=== PATIENT | male | born 1975 | race Caucasian/White ===

== ENCOUNTER 2017-01-28 11:15 | Emergency (ER) | payer MEDICARE, MEDICAID ==
--- NOTE | 2017-01-28 11:51 | ER Document Report ---
ED Medical Screen (RME) - General Stated Complaint: LEFT EAR PAIN Notes: 41 yo male c/o left ear pain x 2 days. + sore throat. + URI s/s x 2 weeks. + fever TRAVEL OUTSIDE OF THE [place] IN LAST 30 DAYS: No - Related Data Allergies/Adverse Reactions: acetaminophen [From Percocet] Adverse Reaction (Verified 01/28/17 11:49) Nausea celecoxib [From Celebrex] Adverse Reaction (Verified 01/28/17 11:49) Diarrhea oxycodone HCl [From Percocet] Adverse Reaction (Verified 01/28/17 11:49) Nausea Past Medical History - Past Medical History Cardiac Medical History: Reports: Hx Hypertension Endocrine Medical History: Reports: Hx Diabetes Mellitus Type 2 GI Medical History: Reports: Hx Gastroesophageal Reflux Disease Psychiatric Medical History: Reports: Hx Depression Past Surgical History: Reports: Hx Adenoidectomy, Hx Orthopedic Surgery - left knee x2, Hx Tonsillectomy - Immunizations Hx Diphtheria, Pertussis, Tetanus Vaccination: Yes
--- NOTE | 2017-01-28 13:03 | ER Document Report ---
ED ENT - General Chief Complaint: Ear Pain Stated Complaint: LEFT EAR PAIN Time seen by provider: 13:01 Mode of Arrival: Ambulatory Information source: Patient Notes: 41-year-old male presents to ED for bad ear infection to the left ear with a sore throat cough and fever. Patient states he has had the ear pain since last night. TRAVEL OUTSIDE OF THE [place] IN LAST 30 DAYS: No - HPI Patient complains to provider of: Ear problem, Nose problem, Throat problem, Other - Cough Onset: Yesterday Onset/Duration: Gradual Quality of pain: Sharp Severity: Moderate Pain Level: 4 Context: Recent Illness Location of pain: Ears - Left, Nose, Sinus, Throat Associated symptoms: Ear pain, Runny nose, Sinus drainage, Sore throat Similar symptoms previously: Yes Recently seen / treated by doctor: No - Related Data Allergies/Adverse Reactions: acetaminophen [From Percocet] Adverse Reaction (Verified 01/28/17 11:49) Nausea celecoxib [From Celebrex] Adverse Reaction (Verified 01/28/17 11:49) Diarrhea oxycodone HCl [From Percocet] Adverse Reaction (Verified 01/28/17 11:49) Nausea Past Medical History - General Information source: Patient - Social History Smoking Status: Current Every Day Smoker Cigarette use (# per day): Yes - pack per day Chew tobacco use (# tins/day): Yes Smoking Education Provided: Yes - less than 2 minutes Frequency of alcohol use: None Drug Abuse: None Occupation: disabled Lives with: Parents Family History: Arthritis, CAD, CVA, DM, Hyperlipidemia, Hypertension, Thyroid Disfunction Patient has suicidal ideation: No Patient has homicidal ideation: No - Past Medical History Cardiac Medical History: Reports: Hx Hypercholesterolemia, Hx Hypertension Pulmonary Medical History: Reports: None EENT Medical History: Reports: None Neurological Medical History: Reports: None Endocrine Medical History: Reports: Hx Diabetes Mellitus Type 2 Renal/ Medical History: Reports: None Malignancy Medical History: Reports None GI Medical History: Reports: Hx Gastroesophageal Reflux Disease Musculoskeltal Medical History: Reports Hx Arthritis, Reports Hx Musculoskeletal Deformity, Reports Hx Musculoskeletal Trauma Skin Medical History: Reports None Psychiatric Medical History: Reports: Hx Depression Traumatic Medical History: Reports: Hx Fractures - Ankle and fingers Infectious Medical History: Reports: None Past Surgical History: Reports: Hx Adenoidectomy, Hx Orthopedic Surgery - left knee x2, Hx Tonsillectomy - Immunizations Hx Diphtheria, Pertussis, Tetanus Vaccination: Yes Review of Systems - Review of Systems Constitutional: Recent illness EENT: Ear pain, Nose discharge, Sinus discharge, Throat pain Cardiovascular: No symptoms reported Respiratory: Cough Gastrointestinal: No symptoms reported Genitourinary: No symptoms reported Male Genitourinary: No symptoms reported Musculoskeletal: No symptoms reported Skin: No symptoms reported Hematologic/Lymphatic: No symptoms reported Neurological/Psychological: No symptoms reported Physical Exam - Vital signs Vitals: Temp Pulse Resp BP Pulse Ox 98.1 F 88 18 131/89 H 92 01/28/17 13:07 01/28/17 13:07 01/28/17 13:07 01/28/17 13:07 01/28/17 13:07 Interpretation: Normal - General General appearance: Appears well, Alert - HEENT Head: Normocephalic, Atraumatic Eyes: Normal Pupils: PERRL Ears: Normal External canal: Normal Tympanic membrane: Bulging, Hemotympanum, Injected, Loss of landmarks, Other - ( Sinus: Normal Nasal: Purulent discharge, Swelling Mouth/Lips: Normal Pharynx: Post nasal drainage Neck: Normal - Respiratory Respiratory status: No respiratory distress Chest status: Nontender Breath sounds: Nonproductive cough. No: Productive cough, Rales, Rhonchi, Stridor, Wheezing Chest palpation: Normal - Cardiovascular Rhythm: Regular Heart sounds: Normal auscultation Murmur: No - Abdominal Inspection: Normal Distension: No distension Bowel sounds: Normal Tenderness: Nontender Organomegaly: No organomegaly - Back Back: Normal, Nontender - Extremities General upper extremity: Normal inspection, Nontender, Normal color, Normal ROM , Normal temperature General lower extremity: Normal inspection, Nontender, Normal color, Normal ROM , Normal temperature, Normal weight bearing. No: Corby's sign - Neurological Neuro grossly intact: Yes Cognition: Normal Orientation: AAOx4 Fl[place] Coma Scale Eye Opening: Spontaneous [place] Coma Scale Verbal: Oriented [place] Coma Scale Motor: Obeys Commands Florent[place] Coma Scale Total: 15 Speech: Normal Motor strength normal: LUE, RUE, LLE, RLE Sensory: Normal - Psychological Associated symptoms: Normal affect, Normal mood - Skin Skin Temperature: Warm Skin Moisture: Dry Skin Color: Normal Course - Vital Signs Vital signs: Temp Pulse Resp BP Pulse Ox 98.1 F 88 18 131/89 H 92 01/28/17 13:07 01/28/17 13:07 01/28/17 13:07 01/28/17 13:07 01/28/17 13:07 Discharge - Discharge Clinical Impression: Otitis media, left Qualifiers: Otitis media type: unspecified Chronicity: unspecified Qualified Code(s): H66.92 - Otitis media, unspecified, left ear Upper respiratory infection Qualifiers: URI type: unspecified URI Qualified Code(s): J06.9 - Acute upper respiratory infection, unspecified Condition: Stable Disposition: HOME, SELF-CARE Instructions: Family Physicians / Practices Additional Instructions: OTITIS MEDIA: You have a middle ear infection (otitis media). This is usually a complication of a cold or sore throat. The middle ear cavity becomes filled with infection. Pressure and stretching of the ear drum cause pain. Antibiotics are required. A 10 day course is usually prescribed. A decongestant may be recommended if you have a "runny nose." You may need anesthetic drops or other pain medication. A follow-up exam may be recommended to make sure the infection has completely cleared. If the ear begins to drain, it means the ear drum has ruptured. This will usually heal spontaneously. However, it means you should keep the ear dry until re-examined by a doctor. Call the physician or return for examination at once if there is severe headache, stiff neck, confusion, increasing fever, or dizziness. You should improve significantly within two days. If you're not better, call the doctor. UPPER RESPIRATORY ILLNESS: You have a viral infection of the respiratory passages -- a "cold." This common infection causes nasal congestion, drainage, and often sore throat and cough. It is highly contagious. The disease usually lasts about 10 to 14 days. There is no "cure" for the viral infection -- it must run its course. If there is a complication, such as bacterial infection in the nose, sinuses, middle ear, or bronchial tubes, antibiotics may be required. The antibiotics won't affect the virus. Drink plenty of fluids. A humidifier may help. An expectorant medication or decongestant may make you more comfortable. Use acetaminophen or ibuprofen for fever or aches. See the doctor if fever persists over two days, if there is any significant worsening of your symptoms, or if you simply fail to improve as expected. SMOKING: If you smoke, you should stop smoking. The tar and chemicals in cigarette smoke are harmful. Smoking has been shown to cause: emphysema chronic bronchitis lung cancer mouth and throat cancer stomach and pancreas cancer premature aging defects In addition, smoking increases ear and lung infections in children of smokers. AMOXICILLIN: Amoxicillin is a member of the penicillin family. It covers the germs likely to cause ear, bronchial, and urinary infections better than plain penicillin. Amoxicillin can be taken without regard to meals. Nausea after taking the medication is rare, but can occur. Diarrhea can occur, particularly in small children. Vaginal yeast infections and oral thrush in infants are also common. Contact your physician if these problems occur. Allergy to penicillins is common. If you have had an allergic reaction to any drug of the penicillin family, you should never take any other penicillin. Notify your doctor at once if you develop hives, itching, swelling, faintness, or shortness of breath. Less serious side effects can include nausea or diarrhea. USE OF ACETAMINOPHEN (Tylenol): Acetaminophen may be taken for pain relief or fever control. It's much safer than aspirin, offering a wider range of "safe" dosages. It is safe during . Some brand names are Tylenol, Panadol, Datril, Anacin 3, Tempra, and Liquiprin. Acetaminophen can be repeated every four hours. The following are maximum recommended dosages: WEIGHT Dose Drops Elixir Chewable( 80mg) (LBS.) drprs=droppers tsp=teaspoon 6 40 mg 0.4 ml (1/2) 6-11 80 mg 0.8 ml (full) tsp 1 tab 12-16 120 mg 1 1/2 drprs 3/4 tsp 1 1/2 tabs 17-23 160 mg 2 drprs 1 tsp 2 tabs 24-30 240 mg 3 drprs 1 1/2 tsp 3 tabs 30-35 320 mg 2 tsp 4 tabs 36-41 360 mg 2 1/4 tsp 4 1/2 tabs 42-47 400 mg 2 1/2 tsp 5 tabs 48-53 480 mg 3 tsp 6 tabs 54-59 520 mg 3 1/4 tsp 6 1/2 tabs 60-64 560 mg 3 1/2 tsp 7 tabs 65-70 600 mg 3 3/4 tsp 7 1/2 tabs 71-76 640 mg 4 tsp 8 tabs 77-82 720 mg 4 1/2 tsp 9 tabs 83-88 800 mg 5 tsp 10 tabs >89 pounds or adults 650 mg to 900 mg Acetaminophen can be repeated every four hours. Maximum dose not to exceed 4000 mg a day. These maximum recommended dosages are slightly higher than the dosages written on the product container, but these dosages are very safe and below the toxic dosage for acetaminophen. FOLLOW-UP CARE: If you have been referred to a physician for follow-up care, call the physician s office for an appointment as you were instructed or within the next two days. If you experience worsening or a significant change in your symptoms, notify the physician immediately or return to the Emergency Department at any time for re-evaluation. Prescriptions: Amoxicillin Trihydrate [Amoxil 875 mg Tablet] 1 tab PO BID #20 tablet Forms: Elevated Blood Pressure, Smoking Cessation Education
[2017-01-28 13:09] VITALS: BP 131/89
[2017-01-28] MEDS ORDERED: AMOXICILLIN TRIHYDRATE 500 MG CAPSULE PO ONE (13:09)
[2017-01-28] MEDS ORDERED: IBUPROFEN 800 MG TABLET PO ONE (13:09)
== END 2017-01-28 13:07 | disposition home or self-care (01) ==
LOC: ER 11:15
DX: H66.92 Otitis media, unspecified, left ear (principal); J06.9 Acute upper respiratory infection, unspecified; H92.02 Otalgia, left ear; J02.9 Acute pharyngitis, unspecified; R05 Cough; R50.9 Fever, unspecified; F17.210 Nicotine dependence, cigarettes, uncomplicated
CPT/HCPCS: 99282; A9270 ×2

== ENCOUNTER 2017-11-02 00:23 | Emergency (ER) | payer MEDICARE, MEDICAID ==
[2017-11-02] MEDS ORDERED: KETOROLAC TROMETHAMINE 60 MG/2 ML SDV IM ONE (00:38)
--- NOTE | 2017-11-02 01:00 | ER Document Report ---
ED Extremity Problem, Lower - General Chief Complaint: Knee Pain Stated Complaint: RIGHT KNEE PAIN Time Seen by Provider: 11/02/17 00:37 Notes: 42 years old, obese male, stays when he was getting off the bed twisted his right right knee, since then unable to walk and bear weight. Therefore called the EMS and came to the ED. Denies any other constitutional symptoms TRAVEL OUTSIDE OF THE [place] IN LAST 30 DAYS: No - Related Data Allergies/Adverse Reactions: acetaminophen [From Percocet] Adverse Reaction (Verified 01/28/17 11:49) Nausea celecoxib [From Celebrex] Adverse Reaction (Verified 01/28/17 11:49) Diarrhea oxycodone HCl [From Percocet] Adverse Reaction (Verified 01/28/17 11:49) Nausea Past Medical History - Social History Smoking Status: Unknown if Ever Smoked Chew tobacco use (# tins/day): No Frequency of alcohol use: Rare Drug Abuse: None Family History: Arthritis, CAD, CVA, DM, Hyperlipidemia, Hypertension, Thyroid Disfunction Patient has suicidal ideation: No Patient has homicidal ideation: No - Past Medical History Cardiac Medical History: Reports: Hx Hypercholesterolemia, Hx Hypertension Endocrine Medical History: Reports: Hx Diabetes Mellitus Type 2 Renal/ Medical History: Denies: Hx Peritoneal Dialysis GI Medical History: Reports: Hx Gastroesophageal Reflux Disease Musculoskeltal Medical History: Reports Hx Arthritis, Reports Hx Musculoskeletal Deformity, Reports Hx Musculoskeletal Trauma Psychiatric Medical History: Reports: Hx Depression Traumatic Medical History: Reports: Hx Fractures - Ankle and fingers Past Surgical History: Reports: Hx Adenoidectomy, Hx Orthopedic Surgery - left knee x2, Hx Tonsillectomy - Immunizations Hx Diphtheria, Pertussis, Tetanus Vaccination: Yes Review of Systems - Review of Systems Notes: REVIEW OF SYSTEMS: CONSTITUTIONAL : Denies fever, chills, or sweats. Denies recent illness. EENT: Denies eye, ear, throat, or mouth pain or symptoms. Denies nasal or sinus congestion or discharge. Denies throat, tongue, or mouth swelling or difficulty swallowing. CARDIOVASCULAR: Denies chest pain. Denies palpitations or racing or irregular heart beat. Denies ankle edema. RESPIRATORY: Denies cough, cold, or chest congestion. Denies shortness of breath, difficulty breathing, or wheezing. GASTROINTESTINAL: Denies abdominal pain or distention. Denies nausea, vomiting , or diarrhea. Denies blood in vomitus, stools, or per rectum. Denies black, tarry stools. Denies constipation. GENITOURINARY: Denies difficulty urinating, painful urination, burning, frequency, blood in urine, or discharge. MUSCULOSKELETAL: As per history of complain SKIN: Denies rash, lesions or sores. HEMATOLOGIC : Denies easy bruising or bleeding. LYMPHATIC: Denies swollen, enlarged glands. NEUROLOGICAL: Denies confusion or altered mental status. Denies passing out or loss of consciousness. Denies dizziness or lightheadedness. Denies headache. Denies weakness or paralysis or loss of use of either side. Denies problems with gait or speech. Denies sensory loss, numbness, or tingling. Denies seizures. PSYCHIATRIC: Denies anxiety or stress. Denies depression, suicidal ideation, or homicidal ideation. ALL OTHER SYSTEMS REVIEWED AND NEGATIVE. Dictation was performed using [employer] voice recognition software PHYSICAL EXAMINATION: GENERAL: Morbidly obese, unhygienic, multiple rings throughout his face, multiple tattoo hope right knee there is no obvious swelling discoloration noted HEAD: Atraumatic, normocephalic. EYES: Pupils equal round and reactive to light, extraocular movements intact, sclera anicteric, conjunctiva are normal. ENT: Nares patent, oropharynx clear without exudates. Moist mucous membranes. NECK: Normal range of motion, supple without lymphadenopathy LUNGS: Breath sounds clear to auscultation bilaterally and equal. No wheezes rales or rhonchi. HEART: Regular rate and rhythm without murmurs ABDOMEN: Soft, nontender, nondistended abdomen. No guarding, no rebound. No masses appreciated. Musculoskeletal:, He could not flex and extend anticipation of pain. Neurovascular function distally within normal limitsis just having a lot of is NEUROLOGICAL: Cranial nerves grossly intact. Normal speech, normal gait. Normal sensory, motor exams PSYCH: Normal mood, normal affect. SKIN: Warm, Dry, normal turgor, no rashes or lesions noted. Course - Re-evaluation Re-evalutation: 11/02/17 01:26 Persistent pain - Diagnostic Test Radiology results interpreted by me: 11/02/17 01:25 Report by the radiologist reviewed no acute fractures but osteoarthritic changes Discharge - Discharge Clinical Impression: Sprain of right knee Qualifiers: Encounter type: initial encounter Involved ligament of knee: unspecified ligament Qualified Code(s): S83.91XA - Sprain of unspecified site of right knee , initial encounter Right knee injury Qualifiers: Encounter type: initial encounter Qualified Code(s): S89.91XA - Unspecified injury of right lower leg, initial encounter Condition: Fair Disposition: HOME, SELF-CARE Instructions: Suspected Internal Knee Injury ([facility]) Prescriptions: Diclofenac Sodium 75 mg PO TID PRN #30 tablet. PRN Reason: Referrals: VIMAL SALCEDO MD [NO LOCAL MD] - Follow up as needed
--- NOTE | 2017-11-02 01:20 | RADIOLOGY REPORT (SQ) ---
EXAM DESCRIPTION: KNEE RIGHT 4 VIEWS CLINICAL HISTORY: fall with pain COMPARISON: None. FINDINGS: 4 views of the knee. No acute fracture or dislocation. No radiopaque foreign bodies. 3 compartment joint space narrowing and marginal osteophytosis. IMPRESSION: 1. No acute fracture or dislocation. 2. 3 compartment osteoarthritic change.
[2017-11-02 02:08] VITALS: BP 153/94
== END 2017-11-02 02:09 | disposition home or self-care (01) ==
LOC: ER 00:23
DX: S83.91XA Sprain of unspecified site of right knee, initial encounter (principal); X50.0XXA Overexertion from strenuous movement or load, initial encounter; Y92.009 Unspecified place in unspecified non-institutional (private) residence as the place of occurrence of the external cause; E78.00 Pure hypercholesterolemia, unspecified; I10 Essential (primary) hypertension; E11.9 Type 2 diabetes mellitus without complications; Z88.6 Allergy status to analgesic agent
CPT/HCPCS: 99283; 96372; 73564; L1830; J1885

== ENCOUNTER 2017-12-05 11:57 | Emergency (ER) | payer MEDICARE, MEDICAID ==
--- NOTE | 2017-12-05 12:17 | ER Document Report ---
ED Medical Screen (RME) - General Chief Complaint: Leg Pain Stated Complaint: LEFT LEG PAIN Time Seen by Provider: 12/05/17 12:14 Mode of Arrival: Ambulatory Information source: Patient Notes: 42-year-old male presenting with complaints of left knee and calf pain. Patient states he has had previous meniscus repairs in this knee but this pain today feels different. Patient states the pain comes and goes and he feels a throbbing sensation in his calf. Patient states the pain is not reproducible with palpation. Patient denies any chest pain or shortness of breath. Patient is on a baby aspirin a day. Patient has no history of PE/DVT. TRAVEL OUTSIDE OF THE [place] IN LAST 30 DAYS: No - Related Data Allergies/Adverse Reactions: celecoxib [From Celebrex] Adverse Reaction (Verified 12/05/17 12:20) Diarrhea Past Medical History - General Information source: [facility] Records - Past Medical History Cardiac Medical History: Reports: Hx Hypercholesterolemia, Hx Hypertension Denies: Hx DVT Endocrine Medical History: Reports: Hx Diabetes Mellitus Type 2 Renal/ Medical History: Denies: Hx Peritoneal Dialysis GI Medical History: Reports: Hx Gastroesophageal Reflux Disease Musculoskeltal Medical History: Reports Hx Arthritis, Reports Hx Musculoskeletal Deformity, Reports Hx Musculoskeletal Trauma Psychiatric Medical History: Reports: Hx Depression Traumatic Medical History: Reports: Hx Fractures - Ankle and fingers Past Surgical History: Reports: Hx Adenoidectomy, Hx Orthopedic Surgery - left knee x2, Hx Tonsillectomy - Immunizations Hx Diphtheria, Pertussis, Tetanus Vaccination: Yes Review of Systems - Review of Systems Musculoskeletal: See HPI, Joint pain - left knee, left calf pain Physical Exam - Vital signs Vitals: Temp Pulse Resp BP Pulse Ox 97.5 F 16 L 16 147/83 H 93 12/05/17 12:12/05/17 12:12/05/17 12:01 12/05/17 12:12/05/17 12:01 - General General appearance: Appears well, Alert In distress: None - HEENT Head: Normocephalic, Atraumatic Eyes: Normal - Respiratory Respiratory status: No respiratory distress Chest status: Nontender Breath sounds: Normal - Extremities General lower extremity: Tender - left knee and calf pain Course - Vital Signs Vital signs: Temp Pulse Resp BP Pulse Ox 97.5 F 16 L 16 147/83 H 93 12/05/17 12:01 12/05/17 12:01 12/05/17 12:01 12/05/17 12:01 12/05/17 12:01 [place]la[place] Documentation - Scribe Written by Stacie:: Stacie Siddiqui, 12/05/2017 1304 acting as scribe for :: [email or web address]
--- NOTE | 2017-12-05 13:16 | RADIOLOGY REPORT (SQ) ---
EXAM DESCRIPTION: KNEE LEFT 3 VIEWS COMPLETED DATE/TIME: 12/05/2017 1:05 pm REASON FOR STUDY: left Knee pain COMPARISON: None. NUMBER OF VIEWS: Four views. TECHNIQUE: AP, lateral, and both oblique radiographic images acquired of the left knee. LIMITATIONS: None. FINDINGS: MINERALIZATION: Normal. BONES: No acute fracture or dislocation. No worrisome bone lesions. JOINT: Moderate osteoarthritis of the patellofemoral and lateral tibiofemoral compartments with moder ate to severe osteoarthritis of the medial tibiofemoral compartment. No significant joint effusion. SOFT TISSUES: No soft tissue swelling. No radio-opaque foreign body. OTHER: No other significant finding. IMPRESSION: MODERATE TO SEVERE TRICOMPARTMENTAL OSTEOARTHRITIS WITHOUT ACUTE ABNORMALITY. TECHNICAL DOCUMENTATION: JOB ID: [id number] [employer]- All Rights Reserved
--- NOTE | 2017-12-05 14:35 | RADIOLOGY REPORT (SQ) ---
EXAM DESCRIPTION: VENOUS UNILATERAL LOWER COMPLETED DATE/TIME: 12/05/2017 2:24 pm REASON FOR STUDY: Left Calf pain COMPARISON: None. TECHNIQUE: Dynamic and static boyd scale and color images acquired of the left leg venous system. Se lected spectral images acquired with additional compression and augmentation maneuvers. The contralat eral common femoral vein and saphenofemoral junction were also imaged. Images stored on PACS. LIMITATIONS: None. FINDINGS: COMMON FEMORAL: Normal phasicity, compression and augmentation. No visualized echogenic ma terial on boyd scale. No defects on color images. FEMORAL: Normal compression and augmentation. No visualized echogenic material on boyd scale. No defe cts on color images. POPLITEAL: Normal compression, augmentation. No visualized echogenic material on boyd scale. No defec ts on color images. CALF VESSELS: Normal compression, augmentation. No visualized echogenic material on boyd scale. No de fects on color images. GSV and SSV: Normal compression, augmentation. No visualized echogenic material on boyd scale. No def ects on color images. ANY DEEP VENOUS INSUFFICIENCY: Not evaluated. ANY EVIDENCE OF POPLITEAL CYST: No. OTHER: No other significant finding. CONTRALATERAL COMMON FEMORAL VEIN AND SAPHENOFEMORAL JUNCTION: Normal phasicity, compression and augmentation. No visualized echogenic material on boyd scale. No de fects on color images. IMPRESSION: NO EVIDENCE DVT OR SVT IN THE LEFT LEG. TECHNICAL DOCUMENTATION: JOB ID: [id number] [employer]- All Rights Reserved
--- NOTE | 2017-12-05 15:17 | ER Document Report ---
HPI - HPI Pain Level: 5 - DERM Skin Color: Normal, [place] Past Medical History - General Information source: [facility] Records - Social History Smoking Status: Current Every Day Smoker Chew tobacco use (# tins/day): No Frequency of alcohol use: Rare Drug Abuse: None Family History: Arthritis, CAD, CVA, DM, Hyperlipidemia, Hypertension, Thyroid Disfunction Patient has suicidal ideation: No Patient has homicidal ideation: No - Past Medical History Cardiac Medical History: Reports: Hx Hypercholesterolemia, Hx Hypertension Denies: Hx DVT Endocrine Medical History: Reports: Hx Diabetes Mellitus Type 2 Renal/ Medical History: Denies: Hx Peritoneal Dialysis GI Medical History: Reports: Hx Gastroesophageal Reflux Disease Musculoskeltal Medical History: Reports Hx Arthritis, Reports Hx Musculoskeletal Deformity, Reports Hx Musculoskeletal Trauma Psychiatric Medical History: Reports: Hx Depression Traumatic Medical History: Reports: Hx Fractures - Ankle and fingers Past Surgical History: Reports: Hx Adenoidectomy, Hx Orthopedic Surgery - left knee x2, Hx Tonsillectomy - Immunizations Hx Diphtheria, Pertussis, Tetanus Vaccination: Yes Vertical Provider Document - INFECTION CONTROL TRAVEL OUTSIDE OF THE [place] IN LAST 30 DAYS: No - RESPIRATORY O2 Sat by Pulse Oximetry: 93 Course - Vital Signs Vital signs: Temp Pulse Resp BP Pulse Ox 97.5 F 16 L 16 147/83 H 93 12/05/17 12:01 12/05/17 12:01 12/05/17 12:01 12/05/17 12:01 12/05/17 12:01 Discharge - Discharge Clinical Impression: Pain of left calf Left knee pain Qualifiers: Chronicity: chronic Qualified Code(s): M25.562 - Pain in left knee; G89.29 - Other chronic pain; G89.29 - Other chronic pain Osteoarthritis Qualifiers: Osteoarthritis location: knee Osteoarthritis type: unspecified Laterality: left Qualified Code(s): M17.12 - Unilateral primary osteoarthritis, left knee Condition: Stable Disposition: HOME, SELF-CARE
--- NOTE | 2017-12-05 15:27 | ER Document Report ---
HPI - HPI Patient complains to provider of: left knee pain, left calf pain Onset: Other - 2-3 days Onset/Duration: Persistent Quality of pain: Achy Severity: Severe Pain Level: 5 Context: Patient presents emergency department with complaints of left knee, left calf pain for the past 2-3 days. Patient denies trauma. Reports history of knee pain with prior scope. Reports this pain started out of the blue. Denies recent trip. Denies history of DVT. Reports family history of blood clots. Denies fever vomiting shortness of breath. Associated Symptoms: None Exacerbated by: Movement Relieved by: Denies Similar symptoms previously: Yes Recently seen / treated by doctor: No - DERM Skin Color: Normal, [place] Past Medical History - General Information source: Patient, [facility] Records - Social History Smoking Status: Current Every Day Smoker Cigarette use (# per day): Yes Chew tobacco use (# tins/day): No Frequency of alcohol use: Rare Drug Abuse: None Family History: Arthritis, CAD, CVA, DM, Hyperlipidemia, Hypertension, Thyroid Disfunction, Other - PE/DVT Patient has suicidal ideation: No Patient has homicidal ideation: No - Past Medical History Cardiac Medical History: Reports: Hx Hypercholesterolemia, Hx Hypertension Denies: Hx DVT Endocrine Medical History: Reports: Hx Diabetes Mellitus Type 2 Renal/ Medical History: Denies: Hx Peritoneal Dialysis GI Medical History: Reports: Hx Gastroesophageal Reflux Disease Musculoskeltal Medical History: Reports Hx Arthritis, Reports Hx Musculoskeletal Deformity, Reports Hx Musculoskeletal Trauma Psychiatric Medical History: Reports: Hx Depression Traumatic Medical History: Reports: Hx Fractures - Ankle and fingers Past Surgical History: Reports: Hx Adenoidectomy, Hx Orthopedic Surgery - left knee x2, Hx Tonsillectomy - Immunizations Hx Diphtheria, Pertussis, Tetanus Vaccination: Yes Vertical Provider Document - CONSTITUTIONAL Agree With Documented VS: Yes Exam Limitations: No Limitations General Appearance: WD/WN, No Apparent Distress - INFECTION CONTROL TRAVEL OUTSIDE OF THE [place] IN LAST 30 DAYS: No - HEENT HEENT: Atraumatic, Normocephalic - NECK Neck: Normal Inspection, Supple. negative: Lymphadenopathy-Left, Lymphadenopathy-Right - RESPIRATORY Respiratory: Breath Sounds Normal, No Respiratory Distress O2 Sat by Pulse Oximetry: 93 - CARDIOVASCULAR Cardiovascular: Regular Rate, Regular Rhythm - GI/ABDOMEN Gastrointestinal: Abdomen Soft - MUSCULOSKELETAL/EXTREMETIES Musculoskeletal/Extremeties: MAEW, FROM, Tender - LEFT KNEE TTP, No obvious deformity, no swelling, no erythema, neg homans, no warmth - NEURO Level of Consciousness: Awake, Alert, Appropriate Motor/Sensory: No Motor Deficit - DERM Integumentary: Warm, Dry Adult Front & Back Diagram: 1 - c/o knee pain 2 - c/o calf pain, no erythema, no swelling, no warmth, neg homans Course - Re-evaluation Re-evalutation: 12/05/17 19:27 doppler neg, knee xray shows tricompartmental osteoarthritis, patient does have a primary care provider, Shonna Rosa. He reports he has a scheduled appointment with her and that she was planning on sending him to orthopedics. We discussed pain medication. He declined pain medication said he will take Tylenol Motrin for the pain. - Vital Signs Vital signs: Temp Pulse Resp BP Pulse Ox 97.5 F 16 L 16 147/83 H 93 12/05/17 12:01 12/05/17 12:01 12/05/17 12:01 12/05/17 12:01 12/05/17 15:16 - Diagnostic Test Radiology reviewed: Image reviewed, Reports reviewed - EXAM DESCRIPTION: KNEE LEFT 3 VIEWS COMPLETED DATE/TIME: 12/05/2017 1:05 pm REASON FOR STUDY: left Knee pain COMPARISON: None. NUMBER OF VIEWS: Four views. TECHNIQUE: AP, lateral, and both oblique radiographic images acquired of the left knee. LIMITATIONS: None. FINDINGS: MINERALIZATION: Normal. BONES: No acute fracture or dislocation. No worrisome bone lesions. JOINT: Moderate osteoarthritis of the patellofemoral and lateral tibiofemoral compartments with moderate to severe osteoarthritis of the medial tibiofemoral compartment. No significant joint effusion. SOFT TISSUES: No soft tissue swelling. No radio- opaque foreign body. OTHER: No other significant finding. IMPRESSION: MODERATE TO SEVERE TRICOMPARTMENTAL OSTEOARTHRITIS WITHOUT ACUTE ABNORMALITY EXAM DESCRIPTION: VENOUS UNILATERAL LOWER COMPLETED DATE/TIME: 12/05/2017 2:24 pm REASON FOR STUDY: Left Calf pain COMPARISON: None. TECHNIQUE: Dynamic and static boyd scale and color images acquired of the left leg venous system. Selected spectral images acquired with additional compression and augmentation maneuvers. The contralateral common femoral vein and saphenofemoral junction were also imaged. Images stored on PACS. LIMITATIONS: None. FINDINGS: COMMON FEMORAL: Normal phasicity, compression and augmentation. No visualized echogenic material on boyd scale. No defects on color images. FEMORAL: Normal compression and augmentation. No visualized echogenic material on boyd scale. No defects on color images. POPLITEAL: Normal compression, augmentation. No visualized echogenic material on boyd scale. No defects on color images. CALF VESSELS: Normal compression, augmentation. No visualized echogenic material on boyd scale. No defects on color images. GSV and SSV: Normal compression, augmentation. No visualized echogenic material on boyd scale. No defects on color images. ANY DEEP VENOUS INSUFFICIENCY: Not evaluated. ANY EVIDENCE OF POPLITEAL CYST: No. OTHER: No other significant finding. CONTRALATERAL COMMON FEMORAL VEIN AND SAPHENOFEMORAL JUNCTION: Normal phasicity, compression and augmentation. No visualized echogenic material on boyd scale. No defects on color images. IMPRESSION: NO EVIDENCE DVT OR SVT IN THE LEFT LEG Discharge - Discharge Clinical Impression: Pain of left calf Left knee pain Qualifiers: Chronicity: chronic Qualified Code(s): M25.562 - Pain in left knee; G89.29 - Other chronic pain; G89.29 - Other chronic pain Osteoarthritis Qualifiers: Osteoarthritis location: knee Osteoarthritis type: unspecified Laterality: left Qualified Code(s): M17.12 - Unilateral primary osteoarthritis, left knee Condition: Stable Disposition: HOME, SELF-CARE Instructions: Anti-Inflammatory Medication ([facility]), Osteoarthritis ([facility]) Additional Instructions: *You have been evaluated for left knee and calf pain, osteoarthritis *Take ibuprofen or naproxen as indicated *Follow up with Shonna Rosa as scheduled *Follow up with orthopedics-call for an appointment *Return to ED for worsening condition, changes, needs Forms: Elevated Blood Pressure Referrals: SHONNA RSOA NP [Primary Care Provider] - Follow up as needed
[2017-12-05 15:47] VITALS: BP 111/66
== END 2017-12-05 16:00 | disposition home or self-care (01) ==
LOC: ER 11:57
DX: M17.12 Unilateral primary osteoarthritis, left knee (principal); M25.562 Pain in left knee; M79.605 Pain in left leg; F17.210 Nicotine dependence, cigarettes, uncomplicated
CPT/HCPCS: 93971; 99284

== ENCOUNTER 2018-05-23 10:10 | Emergency (ER) | payer MEDICARE, MEDICAID ==
[2018-05-23 10:16] VITALS: BP 178/110
--- NOTE | 2018-05-23 10:53 | ER Document Report ---
HPI - HPI Patient complains to provider of: Toothache Onset: Last week Onset/Duration: Persistent, Worse Pain Level: 5 Context: 42-year-old complaining of toothache. He has known dental decay and he feels like he needs antibiotics may be an abscess forming. No fever or chills. No facial swelling. Associated Symptoms: None Exacerbated by: Denies Relieved by: Denies Similar symptoms previously: Yes Recently seen / treated by doctor: No - ROS ROS below otherwise negative: Yes Systems Reviewed and Negative: Yes All other systems reviewed and negative - EENT EENT: DENIES: Sore Throat - NEURO Neurology: DENIES: Headache - CARDIOVASCULAR Cardiovascular: DENIES: Chest pain - GASTROINTESTINAL Gastrointestinal: DENIES: Abdominal Pain - URINARY Urinary: DENIES: Dysuria Past Medical History - General Information source: Patient - Social History Smoking Status: Current Every Day Smoker Chew tobacco use (# tins/day): No Frequency of alcohol use: None Drug Abuse: None Lives with: Family Family History: Arthritis, CAD, CVA, DM, Hyperlipidemia, Hypertension, Thyroid Disfunction, Other - PE/DVT Patient has suicidal ideation: No Patient has homicidal ideation: No - Past Medical History Cardiac Medical History: Reports: Hx Hypercholesterolemia, Hx Hypertension Endocrine Medical History: Reports: Hx Diabetes Mellitus Type 2 GI Medical History: Reports: Hx Gastroesophageal Reflux Disease Musculoskeltal Medical History: Reports Hx Arthritis, Reports Hx Musculoskeletal Deformity, Reports Hx Musculoskeletal Trauma Psychiatric Medical History: Reports: Hx Depression Traumatic Medical History: Reports: Hx Fractures - Ankle and fingers Past Surgical History: Reports: Hx Adenoidectomy, Hx Orthopedic Surgery - left knee x2, Hx Tonsillectomy - Immunizations Hx Diphtheria, Pertussis, Tetanus Vaccination: Yes Vertical Provider Document - CONSTITUTIONAL Agree With Documented VS: Yes Exam Limitations: No Limitations - INFECTION CONTROL TRAVEL OUTSIDE OF THE [place] IN LAST 30 DAYS: No - HEENT Notes: Extensive dental decay with missing teeth and retracted gingiva exposing the Dentin, no abscess. - NECK Neck: Supple. negative: Lymphadenopathy-Left, Lymphadenopathy-Right Course - Vital Signs Vital signs: Temp Pulse Resp BP Pulse Ox 97.8 F 95 18 178/110 H 93 05/23/18 10:16 05/23/18 10:16 05/23/18 10:16 05/23/18 10:16 05/23/18 10:16 Discharge - Discharge Clinical Impression: Gingivitis, Dental decay, Retracted gingiva, Toothache Condition: Good Disposition: HOME, SELF-CARE Instructions: Acetaminophen, [facility], Dentist, Dental Infection or Abscess ([facility]), Penicillin V K ([facility]), Toothache ([facility]), Topical Lidocaine ([facility]) Additional Instructions: See the dentist Lidocaine to numb the area Penicillin for antibiotics See the dentist Return to the emergency room any worsening of the symptoms Tylenol up to 4000 mg per day Prescriptions: Penicillin V Potassium [Penicillin Vk 500 mg Tablet] 500 mg PO QID #40 tablet Referrals: LENNY HUDDLESTON NP [Primary Care Provider] - Follow up as needed
[2018-05-23] MEDS ORDERED: LIDOCAINE 2% VISCOUS SOLN 20 ML UDCUP PO ONE (10:55)
== END 2018-05-23 11:07 | disposition home or self-care (01) ==
LOC: ER 10:10
DX: K05.10 Chronic gingivitis, plaque induced (principal); K02.9 Dental caries, unspecified; F17.200 Nicotine dependence, unspecified, uncomplicated; E78.00 Pure hypercholesterolemia, unspecified; I10 Essential (primary) hypertension; E11.9 Type 2 diabetes mellitus without complications
CPT/HCPCS: 99282; J3490

== ENCOUNTER 2018-07-02 14:35 | Emergency (ER) | payer MEDICARE, MEDICAID ==
[2018-07-02] MEDS ORDERED: LORAZEPAM 1 MG TABLET PO ONE (15:27)
[2018-07-02] MEDS ORDERED: IPRATROPIUM/ALBUTEROL 0.5-2.5 MG/3 ML AMPUL NEB ONE (15:28)
--- NOTE | 2018-07-02 15:29 | ER Document Report ---
ED Medical Screen (RME) - General Chief Complaint: Psych Problem Stated Complaint: POSSIBLE PANIC ATTACK Time Seen by Provider: 07/02/18 15:27 Notes: 42 years old male presents today with panic attacks saying that he feels like having difficulty in breathing. And feeling very anxious for unknown reason. Denies any suicidal or homicidal ideation. Has a history of depression taking Wellbutrin. Also is a smoker TRAVEL OUTSIDE OF THE [place] IN LAST 30 DAYS: No - Related Data Allergies/Adverse Reactions: celecoxib [From Celebrex] Adverse Reaction (Verified 07/02/18 14:39) Diarrhea Past Medical History - Past Medical History Cardiac Medical History: Reports: Hx Hypercholesterolemia, Hx Hypertension Denies: Hx DVT Endocrine Medical History: Reports: Hx Diabetes Mellitus Type 2 Renal/ Medical History: Denies: Hx Peritoneal Dialysis GI Medical History: Reports: Hx Gastroesophageal Reflux Disease Musculoskeltal Medical History: Reports Hx Arthritis, Reports Hx Musculoskeletal Deformity, Reports Hx Musculoskeletal Trauma Psychiatric Medical History: Reports: Hx Depression Traumatic Medical History: Reports: Hx Fractures - Ankle and fingers Past Surgical History: Reports: Hx Adenoidectomy, Hx Orthopedic Surgery - left knee x2, Hx Tonsillectomy - Immunizations Hx Diphtheria, Pertussis, Tetanus Vaccination: Yes Physical Exam - Vital signs Vitals: Temp Pulse Resp BP Pulse Ox 97.9 F 95 22 H 167/99 H 89 L 07/02/18 14:51 07/02/18 14:51 07/02/18 14:51 07/02/18 14:51 07/02/18 14:51 Course - Vital Signs Vital signs: Temp Pulse Resp BP Pulse Ox 97.9 F 95 22 H 167/99 H 89 L 07/02/18 14:51 07/02/18 14:51 07/02/18 14:51 07/02/18 14:51 07/02/18 14:51 Doctor's Discharge - Discharge Referrals: LENNY HUDDLESTON NP [Primary Care Provider] - Follow up as needed
[2018-07-02 16:09] LABS: ABSOLUTE BASOPHILS # (AUTO) 0.1 10^3/uL (0.0-0.2); ABSOLUTE EOSINOPHILS # (AUTO) 0.2 10^3/uL (0.0-0.6); ABSOLUTE LYMPHOCYTES (AUTO) 1.8 10^3/uL (0.5-4.7); ABSOLUTE MONOCYTES (AUTO) 0.5 10^3/uL (0.1-1.4); ABSOLUTE NEUT (AUTO) 9.2 10^3/uL (1.7-8.2); EOSINOPHILS % (AUTO) 1.9 % (0-6); HEMATOCRIT 47.3 % (37.9-51.0); HEMOGLOBIN 15.5 g/dL (13.5-17.0); LYMPHOCYTES % (AUTO) 15.3 % (13-45); MEAN CORPUSCULAR HGB CONC 32.8 g/dL (32.0-36.0); MEAN CORPUSCULAR VOLUME 85 fl (80-97); MONOCYTES % (AUTO) 3.9 % (3-13); PLATELET COUNT 235 10^3/uL (150-450); RED BLOOD COUNT 5.54 10^6/uL (4.35-5.55); RED CELL DISTRIBUTION WIDTH 15.3 % (11.5-14.0); SEGMENTED NEUTROPHILS % (AUTO) 77.9 % (42-78); TOTAL CELLS COUNTED % (AUTO) 100 %; WHITE BLOOD COUNT 11.9 10^3/uL (4.0-10.5)
[2018-07-02 16:18] LABS: APPEARANCE,URINE CLEAR; BILIRUBIN,URINE NEGATIVE (NEGATIVE); GLUCOSE, URINE 50 mg/dL (NEGATIVE); KETONES,URINE NEGATIVE (NEGATIVE); LEUKOCYTE ESTERASE,URINE NEGATIVE (NEGATIVE); NITRITE,URINE NEGATIVE (NEGATIVE); PROTEIN,URINE 30 mg/dL (NEGATIVE); URINE SPECIFIC GRAVITY 1.025
[2018-07-02 16:19] LABS: ALANINE AMINOTRANSFERASE 28 U/L (21-72); ALBUMIN 3.8 g/dL (3.5-5.0); ALKALINE PHOSPHATASE 97 U/L (38-126); ANION GAP 10 (5-19); ASPARTATE AMINO TRANSFERASE 25 U/L (17-59); BILIRUBIN,DIRECT 0.3 mg/dL (0.0-0.4); BILIRUBIN,TOTAL 0.3 mg/dL (0.2-1.3); BLOOD UREA NITROGEN 10 mg/dL (7-20); CALCIUM 9.2 mg/dL (8.4-10.2); CARBON DIOXIDE 34 mmol/L (22-30); CHLORIDE 89 mmol/L (98-107); COLOR,URINE YELLOW; GLUCOSE 290 mg/dL (75-110); POTASSIUM 4.4 mmol/L (3.6-5.0); SODIUM 133.3 mmol/L (137-145); TOTAL PROTEIN 7.2 g/dL (6.3-8.2)
[2018-07-02 16:20] LABS: ACETAMINOPHEN < 10 ug/mL (10-30); ALCOHOL < 10 mg/dL (NONE DETECTED); SALICYLATE < 1.0 mg/dL (2.0-20.0)
[2018-07-02 16:48] LABS: URINE AMPHETAMINES SCREEN NEGATIVE; URINE BARBITURATES SCREEN NEGATIVE; URINE BENZODIAZEPINES SCREEN NEGATIVE; URINE COCAINE SCREEN NEGATIVE; URINE MARIJUANA (THC) SCREEN NEGATIVE; URINE METHADONE SCREEN NEGATIVE; URINE PHENCYCLIDINE SCREEN NEGATIVE
--- NOTE | 2018-07-02 18:46 | RADIOLOGY REPORT (SQ) ---
EXAM DESCRIPTION: CHEST SINGLE VIEW COMPLETED DATE/TIME: 07/02/2018 6:38 pm REASON FOR STUDY: hypoxia COMPARISON: None. NUMBER OF VIEWS: One view. TECHNIQUE: Single frontal radiographic view of the chest acquired. LIMITATIONS: None. FINDINGS: LUNGS AND PLEURA: No opacities, masses or pneumothorax. No pleural effusion. MEDIASTINUM AND HILAR STRUCTURES: No masses or contour abnormality. HEART AND VASCULATURE: Cardiac enlargement. Vascular congestion. BONES: No acute findings. HARDWARE: None in the chest. OTHER: No other significant finding. IMPRESSION: CARDIAC ENLARGEMENT. VASCULAR CONGESTION. TECHNICAL DOCUMENTATION: JOB ID: [id number] [employer]- All Rights Reserved Reading location - IP/workstation name: [email or web address]
[2018-07-02] MEDS ORDERED: FUROSEMIDE 40 MG TABLET PO ONE (18:59)
--- NOTE | 2018-07-02 19:02 | ER Document Report ---
ED General - General Chief Complaint: Psych Problem Stated Complaint: POSSIBLE PANIC ATTACK Time Seen by Provider: 07/02/18 15:27 Notes: Patient is a 42 year old male with a past medical history of diabetes, hypertension, hyperlipidemia, morbid obesity who presents with complaints of having feelings of anxiety "I feel trapped and then sometimes feel like I am about to lose my kids". He reports that he has been feeling like this for the past several days but has had worsening of his symptoms in the past 24 hours. He also reports that he intermittently feels quite short of breath which is also worsened with exertion or trying to lie flat. The patient reports that he has been noncompliant with medications stating "it becomes so tedious to take some any medications every day". He has also been noncompliant with his CPAP at night for sleep apnea. He states that he is only been sleeping several hours per night. He has not seen his general doctor regarding his concerns. He denies any current shortness of breath, chest pain, unilateral leg swelling, focal weakness or numbness. Nothing improves or worsens his symptoms. He denies history of similar symptoms in the past. TRAVEL OUTSIDE OF THE [place] IN LAST 30 DAYS: No - Related Data Allergies/Adverse Reactions: celecoxib [From Celebrex] Adverse Reaction (Verified 07/02/18 14:39) Diarrhea Past Medical History - General Information source: Patient - Social History Smoking Status: Former Smoker Frequency of alcohol use: None Drug Abuse: None Lives with: Family Family History: Arthritis, CAD, CVA, DM, Hyperlipidemia, Hypertension, Thyroid Disfunction, Other - PE/DVT Patient has suicidal ideation: No Patient has homicidal ideation: No - Past Medical History Cardiac Medical History: Reports: Hx Hypercholesterolemia, Hx Hypertension Denies: Hx DVT Endocrine Medical History: Reports: Hx Diabetes Mellitus Type 2 Renal/ Medical History: Denies: Hx Peritoneal Dialysis GI Medical History: Reports: Hx Gastroesophageal Reflux Disease Musculoskeletal Medical History: Reports Hx Arthritis, Reports Hx Musculoskeletal Deformity, Reports Hx Musculoskeletal Trauma Psychiatric Medical History: Reports: Hx Depression Traumatic Medical History: Reports: Hx Fractures - Ankle and fingers Past Surgical History: Reports: Hx Adenoidectomy, Hx Orthopedic Surgery - left knee x2, Hx Tonsillectomy - Immunizations Hx Diphtheria, Pertussis, Tetanus Vaccination: Yes Review of Systems - Review of Systems Notes: Constitutional: Negative for fever. HENT: Negative for sore throat. Eyes: Negative for visual changes. Cardiovascular: Negative for chest pain. Respiratory: Positive for shortness of breath. Gastrointestinal: Negative for abdominal pain, vomiting or diarrhea. Genitourinary: Negative for dysuria. Musculoskeletal: Negative for back pain. Skin: Negative for rash. Neurological: Negative for headaches, weakness or numbness. 10 point ROS negative except as marked above and in HPI. Physical Exam - Vital signs Vitals: Temp Pulse Resp BP Pulse Ox 97.9 F 95 22 H 167/99 H 89 L 07/02/18 14:51 07/02/18 14:51 07/02/18 14:51 07/02/18 14:51 07/02/18 14:51 Interpretation: Hypertensive, Hypoxic Notes: PHYSICAL EXAMINATION: GENERAL: Morbidly obese but in no distress HEAD: Atraumatic, normocephalic. EYES: Pupils equal round and reactive to light, extraocular movements intact, sclera anicteric, conjunctiva are normal. ENT: nares patent, oropharynx clear without exudates. Moist mucous membranes. NECK: Normal range of motion, supple without lymphadenopathy LUNGS: Breath sounds clear to auscultation bilaterally and equal. No wheezes rales or rhonchi. HEART: Regular rate and rhythm without murmurs ABDOMEN: Soft, morbidly obese abdomen, nontender, normoactive bowel sounds. No guarding, no rebound. No masses appreciated. EXTREMITIES: Normal range of motion, 2+ pitting edema in the bilateral lower extremities that is equal and symmetric. NEUROLOGICAL: No focal neurological deficits. Moves all extremities spontaneously and on command. PSYCH: Normal mood, normal affect. SKIN: Warm, Dry, normal turgor, no rashes or lesions noted. Course - Re-evaluation Re-evalutation: 07/02/18 18:59 Patient presents with symptoms of panic feelings of anxiety particular related to his children currently being present at his home and feel like he "might lose them". But he does also relate periods of intermittent shortness of breath. He admits to noncompliance with his medications including his furosemide which he takes for bilateral lower extremity edema and a history of pulmonary edema the past. He is also noncompliant with his CPAP machine. His workup today reveals mild elevation of BNP, vascular congestion and cardiomegaly seen on chest x-ray. He denies a known history of congestive heart failure. Troponin negative. EKG without ischemic changes. He denies acute chest pain. I have emphasized to the patient that although some of his symptoms may be related to anxiety I am concerned about developing CHF related to his morbid obesity as the patient is currently 190 kg. I have also emphasized with him that his failure to use his CPAP at night and can rapidly because the onset of congestive failure and could also be prompting some of his symptoms. His renal function was within acceptable limits today. I will increase his furosemide dosing by 40 mg daily for the next 1 week and have emphasized dietary restrictions and regular compliance with his current medications. We have also discussed the emergent need for weight loss. I do not see an indication for hospitalization at this time point based on workup and history today. At this time will discharge with return precautions and follow-up recommendations. Verbal discharge instructions given a the bedside and opportunity for questions given. Medication warnings reviewed. Patient is in agreement with this plan and has verbalized understanding of return precautions and the need for primary care follow-up in the next 24-72 hours. - Vital Signs Vital signs: Temp Pulse Resp BP Pulse Ox 98.9 F 94 18 148/88 H 92 07/02/18 21:20 07/02/18 21:20 07/02/18 21:20 07/02/18 21:20 07/02/18 21:20 - Laboratory Result Diagrams: 07/02/18 15:53 07/02/18 15:55 Laboratory results interpreted by me: 07/02/18 07/02/18 07/02/18 15:53 15:55 15:55 WBC 11.9 H RDW 15.3 H Absolute Neutrophils 9.2 H Sodium 133.3 L Chloride 89 L Carbon Dioxide 34 H Glucose 290 H NT-Pro-B Natriuret Pep Urine Protein 30 H Urine Glucose (UA) 50 H Urine Urobilinogen 4.0 H Salicylates < 1.0 L Acetaminophen < 10 L 07/02/18 15:55 WBC RDW Absolute Neutrophils Sodium Chloride Carbon Dioxide Glucose NT-Pro-B Natriuret Pep 187 H Urine Protein Urine Glucose (UA) Urine Urobilinogen Salicylates Acetaminophen - Diagnostic Test Radiology reviewed: Image reviewed, Reports reviewed Radiology results interpreted by me: 07/02/18 19:01 Chest x-ray: Cardiomegaly, vascular congestion, no overt pulmonary edema. Discharge - Discharge Clinical Impression: Morbid obesity, Pulmonary vascular congestion, Noncompliance with medication regimen, Shortness of breath Condition: Fair Disposition: HOME, SELF-CARE Additional Instructions: You were seen today for shortness of breath and feelings of anxiety. A chest x- ray does show that you are likely developing some degree of congestive heart failure and do have extra fluid in her lungs which may be related to your feelings of shortness of breath. You are therefore being started on an increased dose of furosemide. In addition to the dose you currently take I would like you to add an additional 40 mg in the morning. Do this for the next 1 week and then return to your normal dose of furosemide. You need to also avoid foods high in salt. In general most processed foods are extremely elevated in sodium content and should be avoided. You need to follow-up with cardiology for formal echocardiogram. Please contact the listed t rail turner at your earliest ability preferably tomorrow. You need to return to the emergency department immediately if you develop aggressive shortness of breath, chest pain, pass out, or have any other symptoms that are worrisome to you. As we discussed today, please strongly consider losing weight. Your obesity will result in a shorter life and serious diagnoses including heart attacks, stroke, diabetes, high blood pressure, high cholesterol, kidney failure, and will also result in a much less enjoyable life due to these chronic conditions. Focus on gradual life style changes including removing sugared beverages and processed foods from your diet and at least 30 minutes of moderate activity daily. Try to target 4-5lbs of weight loss per month. Prescriptions: Furosemide [Lasix 40 mg Tablet] 40 mg PO QAM #30 tablet Referrals: LENNY HUDDLESTON NP [Primary Care Provider] - Follow up as needed NEAL HERNANDEZ MD [ACTIVE STAFF] - Follow up in 3-5 days
[2018-07-02 21:21] VITALS: BP 148/88
--- NOTE | 2018-07-03 07:16 | EKG REPORT ---
SEVERITY:- ABNORMAL ECG - SINUS RHYTHM PROBABLE LEFT ATRIAL ABNORMALITY RIGHT AXIS DEVIATION BORDERLINE R WAVE PROGRESSION, ANTERIOR LEADS ABNORMAL T, CONSIDER ISCHEMIA, LATERAL LEADS BORDERLINE PROLONGED QT INTERVAL : Confirmed by: Obie Mast MD 03-Jul-2018 07:15:27
== END 2018-07-02 21:21 | disposition home or self-care (01) ==
LOC: ER 14:35
DX: E66.01 Morbid (severe) obesity due to excess calories (principal); Z68.44 Body mass index [BMI] 60.0-69.9, adult; I51.7 Cardiomegaly; R06.02 Shortness of breath; R09.02 Hypoxemia; R09.89 Other specified symptoms and signs involving the circulatory and respiratory systems; R60.0 Localized edema; T50.1X6A Underdosing of loop [high-ceiling] diuretics, initial encounter; Z91.128 Patient's intentional underdosing of medication regimen for other reason; Z91.14 Patient's other noncompliance with medication regimen; E11.9 Type 2 diabetes mellitus without complications; I10 Essential (primary) hypertension; G47.30 Sleep apnea, unspecified; Z91.19 Patient's noncompliance with other medical treatment and regimen; Z87.891 Personal history of nicotine dependence
CPT/HCPCS: 93005; 94640; 99284; 36415; 80307 ×4; 85025; 80053; 81001; 84484; 83880; 71045; 93010; A9270 ×3; J7620

== ENCOUNTER 2018-07-06 13:52 | Emergency (ER) | payer MEDICARE, MEDICAID ==
--- NOTE | 2018-07-06 14:59 | ER Document Report ---
ED General - General Chief Complaint: Anxiety Stated Complaint: PANIC ATTACK Time Seen by Provider: 07/06/18 14:55 TRAVEL OUTSIDE OF THE [place] IN LAST 30 DAYS: No - HPI Notes: Patient was seen recently for increased anxiety showed vascular congestion on chest x-ray was supposed to increase his Lasix patient states he has been compliant however still feels very anxious and short of breath. - Related Data Allergies/Adverse Reactions: celecoxib [From Celebrex] Adverse Reaction (Verified 07/02/18 14:39) Diarrhea Past Medical History - Social History Smoking Status: Current Every Day Smoker Chew tobacco use (# tins/day): No Frequency of alcohol use: None Drug Abuse: None Family History: Arthritis, CAD, CVA, DM, Hyperlipidemia, Hypertension, Thyroid Disfunction, Other - PE/DVT Patient has suicidal ideation: No Patient has homicidal ideation: No - Past Medical History Cardiac Medical History: Reports: Hx Hypercholesterolemia, Hx Hypertension Denies: Hx DVT Endocrine Medical History: Reports: Hx Diabetes Mellitus Type 2 Renal/ Medical History: Denies: Hx Peritoneal Dialysis GI Medical History: Reports: Hx Gastroesophageal Reflux Disease Musculoskeletal Medical History: Reports Hx Arthritis, Reports Hx Musculoskeletal Deformity, Reports Hx Musculoskeletal Trauma Psychiatric Medical History: Reports: Hx Depression Traumatic Medical History: Reports: Hx Fractures - Ankle and fingers Past Surgical History: Reports: Hx Adenoidectomy, Hx Orthopedic Surgery - left knee x2, Hx Tonsillectomy - Immunizations Hx Diphtheria, Pertussis, Tetanus Vaccination: Yes Review of Systems - Review of Systems Respiratory: Short of breath Neurological/Psychological: Anxiety Physical Exam - Vital signs Vitals: Temp Pulse Resp BP Pulse Ox 98.1 F 95 20 150/113 H 97 07/06/18 14:02 07/06/18 14:02 07/06/18 14:02 07/06/18 14:02 07/06/18 14:02 - General General appearance: Appears well In distress: None - HEENT Head: Normocephalic Eyes: Normal - Respiratory Respiratory status: No respiratory distress Chest status: Nontender Course - Vital Signs Vital signs: Temp Pulse Resp BP Pulse Ox 98.1 F 95 20 150/113 H 97 07/06/18 14:02 07/06/18 14:02 07/06/18 14:02 07/06/18 14:02 07/06/18 14:02 Discharge - Discharge Instructions: Anxiety ([facility]) Referrals: LENNY HUDDLESTON ANTISQUEAK CHALKER [Primary Care Provider] - Follow up as needed
[2018-07-06 15:26] LABS: INTERNATIONAL RATION (INR) 0.91; PROTHROMBIN TIME 12.7 SEC (11.4-15.4)
[2018-07-06 15:27] LABS: APPEARANCE,URINE CLEAR; BILIRUBIN,URINE NEGATIVE (NEGATIVE); COLOR,URINE YELLOW; GLUCOSE, URINE NEGATIVE (NEGATIVE); KETONES,URINE NEGATIVE (NEGATIVE); LEUKOCYTE ESTERASE,URINE TRACE (NEGATIVE); NITRITE,URINE NEGATIVE (NEGATIVE); PROTEIN,URINE NEGATIVE (NEGATIVE); URINE SPECIFIC GRAVITY 1.011
--- NOTE | 2018-07-06 15:33 | RADIOLOGY REPORT (SQ) ---
EXAM DESCRIPTION: CHEST 2 VIEWS COMPLETED DATE/TIME: 07/06/2018 3:20 pm REASON FOR STUDY: sob anxiety COMPARISON: None. EXAM PARAMETERS: NUMBER OF VIEWS: two views TECHNIQUE: Digital Frontal and Lateral radiographic views of the chest acquired. RADIATION DOSE: NA LIMITATIONS: none FINDINGS: LUNGS AND PLEURA: No opacities, masses or pneumothorax. No pleural effusion. MEDIASTINUM AND HILAR STRUCTURES: No masses or contour abnormalities. HEART AND VASCULAR STRUCTURES: Heart normal size. No evidence for failure. BONES: No acute findings. HARDWARE: None in the chest. OTHER: No other significant finding. IMPRESSION: NO ACUTE RADIOGRAPHIC FINDING IN THE CHEST. TECHNICAL DOCUMENTATION: JOB ID: [id number] [employer]- All Rights Reserved Reading location - IP/workstation name: [email or web address]-RR
[2018-07-06 15:40] LABS: ALANINE AMINOTRANSFERASE 37 U/L (21-72); ALBUMIN 4.1 g/dL (3.5-5.0); ALKALINE PHOSPHATASE 99 U/L (38-126); ANION GAP 14 (5-19); ASPARTATE AMINO TRANSFERASE 28 U/L (17-59); BILIRUBIN,DIRECT 0.3 mg/dL (0.0-0.4); BILIRUBIN,TOTAL 0.6 mg/dL (0.2-1.3); BLOOD UREA NITROGEN 12 mg/dL (7-20); CALCIUM 9.8 mg/dL (8.4-10.2); CARBON DIOXIDE 35 mmol/L (22-30); CHLORIDE 91 mmol/L (98-107); CREATINE KINASE 188 U/L (55-170); GLUCOSE 252 mg/dL (75-110); SODIUM 139.7 mmol/L (137-145); TOTAL PROTEIN 7.5 g/dL (6.3-8.2)
[2018-07-06 15:41] LABS: ACETAMINOPHEN < 10 ug/mL (10-30); SALICYLATE < 1.0 mg/dL (2.0-20.0)
[2018-07-06 15:42] LABS: URINE AMPHETAMINES SCREEN NEGATIVE; URINE BARBITURATES SCREEN NEGATIVE; URINE BENZODIAZEPINES SCREEN NEGATIVE; URINE COCAINE SCREEN NEGATIVE; URINE MARIJUANA (THC) SCREEN NEGATIVE; URINE METHADONE SCREEN NEGATIVE; URINE PHENCYCLIDINE SCREEN NEGATIVE
[2018-07-06 15:47] LABS: VENOUS BLOOD BASE EXCESS 9.9 mmol/L; VENOUS BLOOD HCO3 36.3 mmol/L (20-32); VENOUS BLOOD PH 7.45 (7.30-7.42)
[2018-07-06 15:53] LABS: ABSOLUTE BASOPHILS # (AUTO) 0.1 10^3/uL (0.0-0.2); ABSOLUTE EOSINOPHILS # (AUTO) 0.1 10^3/uL (0.0-0.6); ABSOLUTE LYMPHOCYTES (AUTO) 2.1 10^3/uL (0.5-4.7); ABSOLUTE MONOCYTES (AUTO) 0.5 10^3/uL (0.1-1.4); ABSOLUTE NEUT (AUTO) 9.3 10^3/uL (1.7-8.2); BASOPHILS % (AUTO) 0.6 % (0-2); HEMATOCRIT 49.6 % (37.9-51.0); HEMOGLOBIN 16.3 g/dL (13.5-17.0); LYMPHOCYTES % (AUTO) 17.3 % (13-45); MEAN CORPUSCULAR HEMOGLOBIN 28.3 pg (27.0-33.4); MEAN CORPUSCULAR HGB CONC 32.9 g/dL (32.0-36.0); MEAN CORPUSCULAR VOLUME 86 fl (80-97); MONOCYTES % (AUTO) 4.4 % (3-13); PLATELET COUNT 255 10^3/uL (150-450); RED BLOOD COUNT 5.77 10^6/uL (4.35-5.55); RED CELL DISTRIBUTION WIDTH 15.6 % (11.5-14.0); SEGMENTED NEUTROPHILS % (AUTO) 76.7 % (42-78); TOTAL CELLS COUNTED % (AUTO) 100 %; WHITE BLOOD COUNT 12.1 10^3/uL (4.0-10.5)
[2018-07-06 15:54] LABS: CREATINE KINASE MB 2.53 ng/mL (<4.55); NT PRO BNP 63 pg/mL (<125)
[2018-07-06 15:55] LABS: TROPONIN I < 0.012 ng/mL
[2018-07-06] MEDS ORDERED: LORAZEPAM 1 MG TABLET PO ONE (16:30)
--- NOTE | 2018-07-06 16:56 | ER Document Report ---
ED General - General Chief Complaint: Anxiety Stated Complaint: PANIC ATTACK Time Seen by Provider: 07/06/18 14:55 Mode of Arrival: Ambulatory Information source: Patient, Relative, [facility] Records Notes: 42-year-old male with type 2 diabetes, hypertension, Graves' disease, hypothyroidism presents with complaint of shortness of breath, anxiety and fear that he is going to . This is the patient's second visit for similar symptoms. He states that he has never suffered from anxiety before but over the last 5 days has had one episode of overwhelming anxiousness. He also states that he has been noncompliant with his diabetes, blood pressure and thyroid medications until 5 days ago when he started taking them again. Patient states that he had his children with him over the summer and "fell off of my routine". This is the reason why he has not been taking his medication. He denies any stressful situations at home, thoughts of suicide, homicide. He denies auditory and visual hallucination. Patient currently denies headache, chest pain, abdominal pain. Patient has no previous psychiatric history. He states that he is just very tearful and does not know why. Patient is on disability. TRAVEL OUTSIDE OF THE [place] IN LAST 30 DAYS: No - HPI Onset: Just prior to arrival Onset/Duration: Sudden Quality of pain: No pain Severity: None Associated symptoms: Shortness of breath Exacerbated by: Denies Relieved by: Denies Similar symptoms previously: Yes Recently seen / treated by doctor: Yes - 07/02/2018 [place] [facility] - Related Data Allergies/Adverse Reactions: celecoxib [From Celebrex] Adverse Reaction (Verified 07/02/18 14:39) Diarrhea Past Medical History - General Information source: Patient, Relative, [facility] Records - Social History Smoking Status: Current Every Day Smoker Chew tobacco use (# tins/day): No Frequency of alcohol use: None Drug Abuse: None Lives with: Family Family History: Arthritis, CAD, CVA, DM, Hyperlipidemia, Hypertension, Thyroid Disfunction, Other - PE/DVT Patient has suicidal ideation: No Patient has homicidal ideation: No - Past Medical History Cardiac Medical History: Reports: Hx Hypercholesterolemia, Hx Hypertension Denies: Hx DVT Endocrine Medical History: Reports: Hx Diabetes Mellitus Type 2 Renal/ Medical History: Denies: Hx Peritoneal Dialysis GI Medical History: Reports: Hx Gastroesophageal Reflux Disease Musculoskeletal Medical History: Reports Hx Arthritis, Reports Hx Musculoskeletal Deformity, Reports Hx Musculoskeletal Trauma Psychiatric Medical History: Reports: Hx Depression Traumatic Medical History: Reports: Hx Fractures - Ankle and fingers Past Surgical History: Reports: Hx Adenoidectomy, Hx Orthopedic Surgery - left knee x2, Hx Tonsillectomy - Immunizations Hx Diphtheria, Pertussis, Tetanus Vaccination: Yes Review of Systems - Review of Systems Notes: REVIEW OF SYSTEMS: CONSTITUTIONAL : Denies fever, chills, or sweats. Denies recent illness. Denies weight loss, recent hospitalizations. EENT: Denies visual changes, eye pain. Denies nasal or sinus congestion or discharge. Denies sore throat, oral lesions, difficulty swallowing. CARDIOVASCULAR: Denies chest pain. Denies palpitations. Denies lower extremity edema. RESPIRATORY: Denies cough, cold, or chest congestion. Denies wheezing. GASTROINTESTINAL: Denies abdominal pain or distention. Denies nausea, vomiting , or diarrhea. Denies blood in vomitus, stools, or per rectum. Denies black, tarry stools. Denies constipation. GENITOURINARY: Denies difficulty urinating, painful urination, frequency, blood in urine, or vaginal discharge. MUSCULOSKELETAL: Denies back or neck pain or stiffness. Denies joint pain or swelling. SKIN: Denies rash, lesions or sores. HEMATOLOGIC : Denies easy bruising or bleeding. LYMPHATIC: Denies swollen glands. NEUROLOGICAL: Denies confusion or altered mental status. Denies passing out or loss of consciousness. Denies dizziness or lightheadedness. Denies headache. Denies weakness or paralysis. Denies problems difficulty with ambulation, slurred speech. Denies sensory loss, numbness, or tingling. Denies seizures. PSYCHIATRIC: Denies depression, suicidal ideation, or homicidal ideation. Denies visual or auditory hallucinations. Physical Exam - Vital signs Vitals: Temp Pulse Resp BP Pulse Ox 98.1 F 95 20 150/113 H 97 07/06/18 14:02 07/06/18 14:02 07/06/18 14:02 07/06/18 14:02 07/06/18 14:02 Interpretation: Hypertensive. No: Tachycardic, Febrile - Notes Notes: PHYSICAL EXAMINATION: GENERAL: Morbididly obese, unkept, foul-smelling. HEAD: Atraumatic, normocephalic. EYES: Pupils equal round and reactive to light, extraocular movements intact, sclera anicteric, conjunctiva are normal. ENT: Nares patent, oropharynx clear without exudates. Moist mucous membranes. NECK: Normal range of motion, supple without lymphadenopathy LUNGS: Breath sounds clear to auscultation bilaterally and equal. No wheezes rales or rhonchi. HEART: Regular rate and rhythm without murmurs ABDOMEN: Soft, nontender, nondistended abdomen. No guarding, no rebound. No masses appreciated. Musculoskeletal: Normal range of motion, no pitting or edema. No cyanosis. NEUROLOGICAL: Cranial nerves grossly intact. Normal speech, normal gait. Normal sensory, motor exams PSYCH: Tearful. Denies suicidal, homicidal ideation. Denies visual and auditory hallucination. SKIN: Multiple tattoos on his head neck and entire body. Course - Re-evaluation Re-evalutation: 07/07/18 15:16 Laboratory 07/06/18 07/06/18 07/06/18 14:58 14:58 14:58 WBC 12.1 H RBC 5.77 H Hgb 16.3 Hct 49.6 MCV 86 MCH 28.3 MCHC 32.9 RDW 15.6 H Plt Count 255 Seg Neutrophils % 76.7 Lymphocytes % 17.3 Monocytes % 4.4 Eosinophils % 1.0 Basophils % 0.6 Absolute Neutrophils 9.3 H Absolute Lymphocytes 2.1 Absolute Monocytes 0.5 Absolute Eosinophils 0.1 Absolute Basophils 0.1 PT 12.7 INR 0.91 VBG pH VBG pCO2 VBG HCO3 VBG Base Excess Sodium 139.7 Potassium 4.0 Chloride 91 L Carbon Dioxide 35 H Anion Gap 14 BUN 12 Creatinine 0.84 Est GFR ( Amer) > 60 Est GFR (Non-Af Amer) > 60 Glucose 252 H Calcium 9.8 Total Bilirubin 0.6 Direct Bilirubin 0.3 Neonat Total Bilirubin Not Reportable Neonat Direct Bilirubin Not Reportable Neonat Indirect Bili Not Reportable AST 28 ALT 37 Alkaline Phosphatase 99 Creatine Kinase 188 H CK-MB (CK-2) Troponin I NT-Pro-B Natriuret Pep Total Protein 7.5 Albumin 4.1 TSH Urine Color Urine Appearance Urine pH Ur Specific [place] Urine Protein Urine Glucose (UA) Urine Ketones Urine Blood Urine Nitrite Urine Bilirubin Urine Urobilinogen Ur Leukocyte Esterase Urine WBC (Auto) Urine RBC (Auto) Urine Bacteria (Auto) Squamous Epi Cells Auto Urine Mucus (Auto) Urine Ascorbic Acid Salicylates < 1.0 L Urine Opiates Screen Urine Methadone Screen Acetaminophen < 10 L Ur Barbiturates Screen Ur Phencyclidine Scrn Ur Amphetamines Screen U Benzodiazepines Scrn Urine Cocaine Screen U Marijuana (THC) Screen 07/06/18 07/06/18 07/06/18 14:58 14:58 14:58 WBC RBC Hgb Hct MCV MCH MCHC RDW Plt Count Seg Neutrophils % Lymphocytes % Monocytes % Eosinophils % Basophils % Absolute Neutrophils Absolute Lymphocytes Absolute Monocytes Absolute Eosinophils Absolute Basophils PT INR VBG pH VBG pCO2 VBG HCO3 VBG Base Excess Sodium Potassium Chloride Carbon Dioxide Anion Gap BUN Creatinine Est GFR ( Amer) Est GFR (Non-Af Amer) Glucose Calcium Total Bilirubin Direct Bilirubin Neonat Total Bilirubin Neonat Direct Bilirubin Neonat Indirect Bili AST ALT Alkaline Phosphatase Creatine Kinase CK-MB (CK-2) 2.53 Troponin I < 0.012 NT-Pro-B Natriuret Pep 63 Total Protein Albumin TSH Urine Color YELLOW Urine Appearance CLEAR Urine pH 7.0 Ur Specific [place] 1.011 Urine Protein NEGATIVE Urine Glucose (UA) NEGATIVE Urine Ketones NEGATIVE Urine Blood NEGATIVE Urine Nitrite NEGATIVE Urine Bilirubin NEGATIVE Urine Urobilinogen 4.0 H Ur Leukocyte Esterase TRACE H Urine WBC (Auto) 2 Urine RBC (Auto) 0 Urine Bacteria (Auto) TRACE Squamous Epi Cells Auto <1 Urine Mucus (Auto) RARE Urine Ascorbic Acid NEGATIVE Salicylates Urine Opiates Screen NEGATIVE Urine Methadone Screen NEGATIVE Acetaminophen Ur Barbiturates Screen NEGATIVE Ur Phencyclidine Scrn NEGATIVE Ur Amphetamines Screen NEGATIVE U Benzodiazepines Scrn NEGATIVE Urine Cocaine Screen NEGATIVE U Marijuana (THC) Screen NEGATIVE 07/06/18 07/06/18 14:58 15:36 WBC RBC Hgb Hct MCV MCH MCHC RDW Plt Count Seg Neutrophils % Lymphocytes % Monocytes % Eosinophils % Basophils % Absolute Neutrophils Absolute Lymphocytes Absolute Monocytes Absolute Eosinophils Absolute Basophils PT INR VBG pH 7.45 H VBG pCO2 54.0 VBG HCO3 36.3 H VBG Base Excess 9.9 Sodium Potassium Chloride Carbon Dioxide Anion Gap BUN Creatinine Est GFR ( Amer) Est GFR (Non-Af Amer) Glucose Calcium Total Bilirubin Direct Bilirubin Neonat Total Bilirubin Neonat Direct Bilirubin Neonat Indirect Bili AST ALT Alkaline Phosphatase Creatine Kinase CK-MB (CK-2) Troponin I NT-Pro-B Natriuret Pep Total Protein Albumin TSH 22.70 H Urine Color Urine Appearance Urine pH Ur Specific [place] Urine Protein Urine Glucose (UA) Urine Ketones Urine Blood Urine Nitrite Urine Bilirubin Urine Urobilinogen Ur Leukocyte Esterase Urine WBC (Auto) Urine RBC (Auto) Urine Bacteria (Auto) Squamous Epi Cells Auto Urine Mucus (Auto) Urine Ascorbic Acid Salicylates Urine Opiates Screen Urine Methadone Screen Acetaminophen Ur Barbiturates Screen Ur Phencyclidine Scrn Ur Amphetamines Screen U Benzodiazepines Scrn Urine Cocaine Screen U Marijuana (THC) Screen Chest X-Ray 07/06/18 14:55 IMPRESSION: NO ACUTE RADIOGRAPHIC FINDING IN THE CHEST. 42-year-old male with type 2 diabetes, hypertension, Graves' disease, hypothyroidism presents with complaint of shortness of breath, anxiety and fear that he is going to . This is the patient's second visit for similar symptoms. He states that he has never suffered from anxiety before but over the last 5 days has had one episode of overwhelming anxiousness. He also states that he has been noncompliant with his diabetes, blood pressure and thyroid medications until 5 days ago when he started taking them again. Patient states that he had his children with him over the summer and "fell off of my routine". This is the reason why he has not been taking his medication. He denies any stressful situations at home, thoughts of suicide, homicide. He denies auditory and visual hallucination. Patient currently denies headache, chest pain, abdominal pain. Patient has no previous psychiatric history. He states that he is just very tearful and does not know why. Vital signs reviewed upon arrival. Patient is hypertensive likely secondary to medication noncompliance. He is tachycardic likely secondary to being anxious and currently crying. Patient found to have a markedly elevated TSH likely secondary to his noncompliance with his levothyroxine. At this time I told him to continue to take his prescribed dose and follow-up with his primary care physician for repeat TSH levels. I did explain to him that this could be causing some of his anxiety, palpitations. Psychiatry did evaluate the patient and recommend BuSpar 10 mg twice daily which was provided for the patient. He does have outpatient follow-up for psychiatric evaluation. Patient provided the opportunity to ask questions, and express concerns. Discharge instructions discussed. Patient is agreeable with discharge home. Return indications explained and discussed with the patient who displays understanding. Patient encouraged to return to the emergency department immediately with any concerns. 07/07/18 15:16 - Vital Signs Vital signs: Temp Pulse Resp BP Pulse Ox 97.8 F 100 20 143/88 H 87 L 07/06/18 19:42 07/06/18 19:42 07/06/18 14:02 07/06/18 19:42 07/06/18 19:42 - Laboratory Result Diagrams: 07/06/18 14:58 07/06/18 14:58 Laboratory results interpreted by me: 07/06/18 07/06/18 07/06/18 14:58 14:58 14:58 WBC 12.1 H RBC 5.77 H RDW 15.6 H Absolute Neutrophils 9.3 H VBG pH VBG HCO3 Chloride 91 L Carbon Dioxide 35 H Glucose 252 H Creatine Kinase 188 H TSH Urine Urobilinogen 4.0 H Ur Leukocyte Esterase TRACE H Salicylates < 1.0 L Acetaminophen < 10 L 07/06/18 07/06/18 14:58 15:36 WBC RBC RDW Absolute Neutrophils VBG pH 7.45 H VBG HCO3 36.3 H Chloride Carbon Dioxide Glucose Creatine Kinase TSH 22.70 H Urine Urobilinogen Ur Leukocyte Esterase Salicylates Acetaminophen - Diagnostic Test Radiology reviewed: Image reviewed, Reports reviewed - EKG Interpretation by Me Rate: Normal Rhythm: NSR When compared to previous EKG there are: Changes noted Discharge - Discharge Clinical Impression: Anxiety, Noncompliance with medication regimen, Shortness of breath, Morbid obesity Hypothyroidism Qualifiers: Hypothyroidism type: unspecified Qualified Code(s): E03.9 - Hypothyroidism, unspecified Hypertension Qualifiers: Hypertension type: unspecified Qualified Code(s): I10 - Essential (primary) hypertension Condition: Stable Disposition: HOME, SELF-CARE Instructions: Anxiety ([facility]), Hypothyroidism ([facility]) Additional Instructions: Your thyroid hormone is elevated. It is very important that you take your levothyroxine as prescribed. This can cause feelings of anxiousness. Please follow-up with your primary care physician who prescribes her thyroid medication for repeat blood work. Anxiety The physician feels that some of your health problems are being caused by anxiety. Anxiety affects your health in many ways. Anxiety alone can cause palpitations, sweats, chest pains, abdominal pains, shortness of breath, and headaches. It contributes to ulcer disease, high blood pressure, irritable bowel syndrome, and has been shown to cause flare-ups of many other diseases. Anxiety is not a simple disorder to treat. If the anxiety is due to recent life stresses, you may simply need time to "work through" the changes. If the anxiety is due to an underlying unhappiness with yourself or due to psychiatric disturbance, professional help will be needed. Your physician can refer you for further help if needed. Anti-anxiety medication is occasionally given if the stress is acute or if you are having trouble sleeping. Chronic or frequent use of these medications is not a good idea because the body becomes reliant on it, preventing you from dealing with life's normal stresses. Follow up: You reported an appointment with [facility] on 07/26/18. You should ensure you make this appointment and consider seeing a psychiatrist for your mental health medications. You have been provided an outpatient resource sheet for local MH providers. If your symptoms continue or worsen contact you physician immediately , utilize mobile crisis or return to the emergency department. Prescriptions: Buspirone HCl [Buspar 10 mg Tablet] 10 mg PO BID #28 tablet Forms: Elevated Blood Pressure Referrals: LENNY HUDDLESTON NP [Primary Care Provider] - 07/26/18
--- NOTE | 2018-07-06 18:17 | PSYCHOLOGICAL NOTE ---
Psych Note - Psych Note Psych Note: Reason for Consult: Anxiety Contact Permissions: Uncle Ji at bedside, patient gave verbal consent to speak in front of him freely Patient is a 42 year old male who presented to the ED today via his Uncle for Anxiety and Panic Attack. He acknowledged "back at the beginning of May he stopped taking all of his medications as a result of his children visiting from [place], he would forget and then get off track with medications, and he started them back up Thursday (07/02/18)." He noted he is prescribed Levothyroxine Sodium , Wellbutrin (3-4 months ago switched from Cymbalta to this), Prozac (said has not started yet due to research he did online and side effects), Celebrex, Lisinopril, Baby Aspirin, Generic Lasix, Atorvastatin for Cholesterol Mobic for pain, Insulin stick pen with a dial and a big blue pill for diabetes that has metformin in it. He described symptoms of his anxiety.panic attack as: shortness of breath, feeling overwhelmed and thinking/feeling like he is going to /not wanting to /scared of dying." He denied previous MH treatment to include both inpatient and outpatient with the exception of his PCM prescribing psychiatric medications. He stated "I have not had any MH or anxiety until when I visited Thursday (07/02/18) for the same thing." He reported the Ativan he was given today seemed to help. He stated his mother has MH issues and is prescribed Cymbalta three times a day. Her denied SI/HI. Patient was alert and oriented to person, place, time and situation. Mood was euthymic with congruent affect. He denied SI/HI, history of and these were not presenting concerns. He did not appear to be responding to internal stimuli as evidenced by fair eye contact, answering questions appropriately when addressed and carrying on dialogue conversation. Thought processes were linear and organized. Conversational speech was within normal limits for rate, tone and prosody. Intellectual abilities are estimated to be average. Insight, judgment and impulse control were fair as evidenced by having concern for the way he had been feeling and understanding it may be related to having stopped his medications for a month or so. Diagnosis: 300.00 (F41.9) Unspecified Anxiety Disorder Medication recommendations made by the psychiatric medical provider, Dr. Terra MD, includes: Buspar 10MG twice a day for anxiety/sleep Impression/Plan: Patient is cleared from acute psychiatric services. He denied SI/HI, history of and these were not presenting problems. There were no observed psychosis and again this was not a presenting concern. Patient has a follow up appointment with his PCM at [facility] location in [place] near [facility] on 07/26/18. He was instructed to ensure he makes this appointment and continues taking medications as prescribed. Provided psycho-education regarding concerns with abruptly stopping and then restarting medications and the importance of having a doctor's oversight when doing so. Provided the outpatient resource sheet for MH providers and encouraged seeing a psychiatrist for MH medications. Also provided psyco-education on how every medication even O-T-C have side effects which do not mean an individual will experience them. Consulted with Dr. Gupta regarding the management and care of patient. ED Physician in agreement with recommendations.
[2018-07-06 20:08] VITALS: BP 143/88
--- NOTE | 2018-07-06 22:28 | EKG REPORT ---
SEVERITY:- ABNORMAL ECG - SINUS RHYTHM NONSPECIFIC INTRAVENTRICULAR CONDUCTION DELAY : Confirmed by: Chica Ford 06-Jul-2018 22:27:51
== END 2018-07-06 19:55 | disposition home or self-care (01) ==
LOC: ER 13:52
DX: E05.00 Thyrotoxicosis with diffuse goiter without thyrotoxic crisis or storm (principal); E03.9 Hypothyroidism, unspecified; E66.01 Morbid (severe) obesity due to excess calories; F41.9 Anxiety disorder, unspecified; I10 Essential (primary) hypertension; R06.02 Shortness of breath; Z91.14 Patient's other noncompliance with medication regimen; F17.200 Nicotine dependence, unspecified, uncomplicated; E11.9 Type 2 diabetes mellitus without complications
CPT/HCPCS: 93005; 99284; 36415; 82553; 82550; 80307 ×3; 84443; 85025; 85610; 80053; 81001; 84484; 82803; 83880; 71046; 93010; A9270

== ENCOUNTER 2019-11-09 05:09 | Emergency (ER) | payer MEDICARE, MEDICAID ==
[2019-11-09 06:16] LABS: APPEARANCE,URINE CLEAR; BILIRUBIN,URINE NEGATIVE (NEGATIVE); COLOR,URINE YELLOW; GLUCOSE, URINE >=500 mg/dL (NEGATIVE); KETONES,URINE NEGATIVE (NEGATIVE); LEUKOCYTE ESTERASE,URINE NEGATIVE (NEGATIVE); NITRITE,URINE NEGATIVE (NEGATIVE); PROTEIN,URINE NEGATIVE (NEGATIVE); URINE SPECIFIC GRAVITY 1.036; UROBILINOGEN,URINE NEGATIVE mg/dL (<2.0)
[2019-11-09] MEDS ORDERED: IBUPROFEN 800 MG TABLET PO ONE (08:58)
--- NOTE | 2019-11-09 08:59 | ER Document Report ---
HPI - HPI Patient complains to provider of: Low back pain Time Seen by Provider: 11/09/19 08:50 Onset: Other - 4 Days Onset/Duration: Persistent Quality of pain: Achy Pain Level: 4 Context: 44-year-old male with history of diabetes leg swelling low back pain presents to the emergency department with complaints of low back pain for the past 4 days. Reports he went on a 4 mile walk with his children 4 days ago and his back is been hurting ever since. Denies trauma. Denies fever nausea vomiting diarrhea. Denies numbness and tingling. Denies pain with void, denies urinary frequency. Denies urinary bowel incontinence or retention. Last bowel movement was 1 hour ago here in the emergency department. Has been taking ibuprofen without relief of symptoms. He was worried he had a urinary tract infection so he came in to have his urine checked. Associated Symptoms: None Exacerbated by: Denies Relieved by: Denies Similar symptoms previously: Yes Recently seen / treated by doctor: No Past Medical History - General Information source: Patient - Social History Smoking Status: Current Every Day Smoker Frequency of alcohol use: None Drug Abuse: None Family History: Arthritis, CAD, CVA, DM, Hyperlipidemia, Hypertension, Thyroid Disfunction, Other - PE/DVT Patient has suicidal ideation: No Patient has homicidal ideation: No - Past Medical History Cardiac Medical History: Reports: Hx Hypercholesterolemia, Hx Hypertension Denies: Hx DVT Endocrine Medical History: Reports: Hx Diabetes Mellitus Type 2 Renal/ Medical History: Denies: Hx Peritoneal Dialysis GI Medical History: Reports: Hx Gastroesophageal Reflux Disease Musculoskeletal Medical History: Reports Hx Arthritis, Reports Hx Musculoskeletal Deformity, Reports Hx Musculoskeletal Trauma Psychiatric Medical History: Reports: Hx Depression Traumatic Medical History: Reports: Hx Fractures - Ankle and fingers Past Surgical History: Reports: Hx Adenoidectomy, Hx Orthopedic Surgery - left knee x2, Hx Tonsillectomy - Immunizations Hx Diphtheria, Pertussis, Tetanus Vaccination: Yes Vertical Provider Document - CONSTITUTIONAL Agree With Documented VS: Yes Exam Limitations: No Limitations General Appearance: WD/WN, No Apparent Distress - INFECTION CONTROL TRAVEL OUTSIDE OF THE [place] IN LAST 30 DAYS: No - HEENT HEENT: Atraumatic, Normocephalic - NECK Neck: Normal Inspection, Supple. negative: Lymphadenopathy-Left, Lymphadenopathy-Right - RESPIRATORY Respiratory: Breath Sounds Normal, No Respiratory Distress - CARDIOVASCULAR Cardiovascular: Regular Rate, Regular Rhythm - GI/ABDOMEN Gastrointestinal: Abdomen Soft, Abdomen Non-Tender - BACK Back: Normal Inspection - No obvious deformity good distal movement and sensation no erythema no warmth no swelling no weakness - MUSCULOSKELETAL/EXTREMETIES Musculoskeletal/Extremeties: DEMIAN YORK - NEURO Level of Consciousness: Awake, Alert, Appropriate Motor/Sensory: No Motor Deficit - DERM Integumentary: Warm, Dry, No Rash Adult Front & Back Diagram: 1 - Complains of low back pain. Denies CVA tenderness Course - Re-evaluation Re-evalutation: 11/09/19 09:12 44-year-old morbidly obese male presents to the emergency department with complaints of low back pain since he went for a long walk with his children 4 days ago. Patient is resting in a recliner. Reports he never can sleep in a bed never has been this more comfortable sleeping in a recliner. Patient denies trauma. Denies urinary or bowel incontinence or retention. Reports he was worried that maybe he had a urinary tract infection. Denies dysuria. Low back pain is across the entire low back, muscular. UA shows glucose. Patient reports his sugars been running in the 170s. We will treat patient ibuprofen and muscle relaxers. He was instructed to follow-up with his primary care provider within 1 week for recheck. He was also instructed to return the emergency department for worsening symptoms concerns. He verbalized understanding to all instructions. Low suspicion for any meningitis, fracture, expanding/ruptured AAA, cauda equina syndrome, epidural mass lesion/abscess, herniated disc causing severe spinal stenosis, or other systemic infection at this time. Patient is aware that this condition can change from initial presentation and that she needs monitor symptoms closely for any acute changes. - Vital Signs Vital signs: Temp Pulse Resp BP Pulse Ox 97.9 F 116 H 20 145/91 H 95 11/09/19 05:18 11/09/19 05:18 11/09/19 05:18 11/09/19 05:18 11/09/19 05:18 - Laboratory Laboratory results interpreted by me: 11/09/19 05:46 Urine Glucose (UA) >=500 H Discharge - Discharge Clinical Impression: Low back pain Qualifiers: Chronicity: unspecified Back pain laterality: bilateral Sciatica presence: without sciatica Qualified Code(s): M54.5 - Low back pain Condition: Stable Disposition: HOME, SELF-CARE Instructions: Use of [id number] Ibuprofen ([facility]), Ice Packs ([facility]), Muscle Relaxers ([facility]), Muscle Strain ([facility]) Additional Instructions: *You have been evaluated for back pain *Take medication as prescribed *Rest/Ice packs as indicated *Follow up with a primary care provider within one week for recheck *Return to ED for worsening condition, changes, needs, concerns Monitor your blood pressure. Your blood pressure was elevated today. This may be because you were anxious, in pain or because you need medication. It is important to follow up with your primary care provider for full evaluation. Prescriptions: Cyclobenzaprine HCl [Flexeril 10 Mg Tablet] 10 mg PO TID #15 tablet Forms: Elevated Blood Pressure Referrals: LENNY HUDDLESTON NP [Primary Care Provider] - Follow up in 1 week
[2019-11-09 09:16] VITALS: BP 137/90
== END 2019-11-09 09:16 | disposition home or self-care (01) ==
LOC: ER 05:09
DX: M54.5 Low back pain (principal); E66.01 Morbid (severe) obesity due to excess calories; E11.9 Type 2 diabetes mellitus without complications; F17.200 Nicotine dependence, unspecified, uncomplicated; I10 Essential (primary) hypertension
CPT/HCPCS: 99283; 81001; A9270

== ENCOUNTER 2020-06-01 17:44 | Emergency (ER) | payer MEDICARE, MEDICAID ==
[2020-06-01 17:50] VITALS: BP 167/103
--- NOTE | 2020-06-01 18:17 | ER Document Report ---
ED Medical Screen (RME) - General Chief Complaint: Testicular Pain Stated Complaint: TESTICULAR BLEEDING/HEAT RASH Time Seen by Provider: 06/01/20 18:12 Primary Care Provider: LENNY HUDDLESTON NP [Primary Care Provider] - Follow up as needed Mode of Arrival: Wheelchair Information source: Patient Notes: 44-year-old male presents to ED for complaint of right testicular pain and bleeding. He states he cannot tell whether he has an abscess sore or rash over it but his right testicle is very painful and bleeding. He states his been bleeding for about a week. He states he does have a history of diabetes high blood pressure cholesterol Graves' disease. 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 He states he smokes a half a pack a day does not drink or drugs and lives by himself and is disabled. He is alert oriented respirations regular nonlabored speaking in full sentences. He is very morbidly obese with a BMI of 50.8 I have greeted and performed a rapid initial assessment of this patient. A comprehensive ED assessment and evaluation of the patient, analysis of test res ults and completion of medical decision making process will be conducted by an additional ED providers. TRAVEL OUTSIDE OF THE [place] IN LAST 30 DAYS: No - Related Data Allergies/Adverse Reactions: celecoxib [From Celebrex] Adverse Reaction (Verified 11/09/19 05:24) Diarrhea Past Medical History - Past Medical History Cardiac Medical History: Reports: Hx Hypercholesterolemia, Hx Hypertension Denies: Hx DVT Endocrine Medical History: Reports: Hx Diabetes Mellitus Type 2 Renal/ Medical History: Denies: Hx Peritoneal Dialysis GI Medical History: Reports: Hx Gastroesophageal Reflux Disease Musculoskeltal Medical History: Reports Hx Arthritis, Reports Hx Musculoskeletal Deformity, Reports Hx Musculoskeletal Trauma Psychiatric Medical History: Reports: Hx Depression Traumatic Medical History: Reports: Hx Fractures - Ankle and fingers Past Surgical History: Reports: Hx Adenoidectomy, Hx Orthopedic Surgery - left knee x2, Hx Tonsillectomy - Immunizations Hx Diphtheria, Pertussis, Tetanus Vaccination: Yes Physical Exam - Vital signs Vitals: Temp Pulse Resp BP Pulse Ox 98.3 F 109 H 20 167/103 H 97 06/01/20 17:48 06/01/20 17:48 06/01/20 17:48 06/01/20 17:48 06/01/20 17:48 Course - Vital Signs Vital signs: Temp Pulse Resp BP Pulse Ox 98.3 F 109 H 20 167/103 H 97 06/01/20 17:48 06/01/20 17:48 06/01/20 17:48 06/01/20 17:48 06/01/20 17:48 Doctor's Discharge - Discharge Referrals: LENNY HUDDLESTON NP [Primary Care Provider] - Follow up as needed
[2020-06-01 19:34] LABS: APPEARANCE,URINE CLEAR; BILIRUBIN,URINE NEGATIVE (NEGATIVE); COLOR,URINE YELLOW; GLUCOSE, URINE >=500 mg/dL (NEGATIVE); KETONES,URINE NEGATIVE (NEGATIVE); LEUKOCYTE ESTERASE,URINE SMALL (NEGATIVE); NITRITE,URINE NEGATIVE (NEGATIVE); PROTEIN,URINE NEGATIVE (NEGATIVE); URINE SPECIFIC GRAVITY 1.037; UROBILINOGEN,URINE NEGATIVE mg/dL (<2.0)
== END 2020-06-01 20:33 | disposition left against medical advice (07) ==
LOC: ER 17:44
DX: Z53.20 Procedure and treatment not carried out because of patient's decision for unspecified reasons (principal); N50.811 Right testicular pain; L74.0 Miliaria rubra; F17.210 Nicotine dependence, cigarettes, uncomplicated; E66.01 Morbid (severe) obesity due to excess calories; E11.9 Type 2 diabetes mellitus without complications; I10 Essential (primary) hypertension; Z88.8 Allergy status to other drugs, medicaments and biological substances
CPT/HCPCS: 81001; 87086; 99281